=== PATIENT | female | born 1960 | race Caucasian/White ===

== ENCOUNTER → 2016-08-25 | Outpatient (CLI) | payer OTHER | LOC: KOH-I 08-19 13:30 | DX: R94.4 Abnormal results of kidney function studies (principal) | CPT/HCPCS: 76775 ==

== ENCOUNTER → 2017-02-04 | Outpatient (CLI) | payer OTHER | LOC: HEART 5 11:00 | DX: R07.9 Chest pain, unspecified (principal); I10 Essential (primary) hypertension | CPT/HCPCS: 93306 ==

== ENCOUNTER → 2020-11-26 | Outpatient (CLI) | payer OTHER | LOC: RAD 12:31 | DX: Z01.818 Encounter for other preprocedural examination (principal); M25.552 Pain in left hip; R06.02 Shortness of breath | CPT/HCPCS: 36415; 71046; 73502; 93005 ==

== ENCOUNTER → 2021-09-04 | Outpatient (CLI) | payer OTHER | LOC: KOH-I 09:44 | DX: M79.671 Pain in right foot (principal); M79.661 Pain in right lower leg | CPT/HCPCS: 73590; 73630 ==